=== PATIENT | female | born 1965 | race Caucasian/White ===

== ENCOUNTER 2017-05-19 21:35 | Emergency (ER) | payer BC ==
[~2017-05-19] VITALS: Ht 165.1 cm; Wt 93.0 kg
[2017-05-19 21:44] VITALS: BP 140/77; PULSE 81; RESP 20; TEMP 97.9; O2SAT 96
[2017-05-19] MEDS ORDERED: SODIUM CHLOR 0.9% 1000 ML INJ 1,000 ML IV ONE (22:17)
--- NOTE | 2017-05-19 22:25 | PD ---
HPI Chief Complaint: Syncope/Near-Syncope Time Seen by Provider: 22:17 Travel History International Travel<30 days: No Contact w/Intl Traveler<30days: No Traveled to known affect area: No History of Present Illness HPI 52-year-old female presents to the emergency department by EMS transport after a witnessed syncopal episode without seizure activity or injury. Patient denies any chronic medical concerns or conditions no surgeries and takes no medications on a regular basis. Patient is visiting from out of state. Patient states planning on returning back to [place] tomorrow. Prior history of near-syncope or syncope. Patient feels well at this time. Patient received 1 L of normal saline per EMS report prior to arrival to the emergency department. Upon fire rescue EMS arrival patient did have bradycardia and hypotension suspicious for a vasovagal event. No seizure activity was witnessed patient's GCS was normal at time of their arrival. Patient's glucose is normal. There was no trauma or injury or fall. PFSH Past Medical History Narrative Medical Negative past medical history no surgical history occasional alcohol use Medical History: Denies Significant Hx Diminished Hearing: No Immunizations Current: Yes Tetanus Vaccination: > 5 Years Influenza Vaccination: No ?: Unknown LMP: 05/05/17 : 3 Para: 3 Past Surgical History Tonsillectomy: Yes Social History Alcohol Use: Yes (OCCASIONAL) Tobacco Use: No Substance Use: No Allergies-Medications (Allergen,Severity, Reaction): Coded Allergies: No Known Allergies (Unverified , 05/19/17) Reported Meds & Prescriptions Reported Meds & Active Scripts Active No Active Prescriptions or Reported Medications Review of Systems Except as stated in HPI: all other systems reviewed are Neg Physical Exam Narrative GENERAL: Well-developed well-nourished female in no acute distress no respiratory distress; GCS 15 SKIN: Warm and dry. HEAD: Atraumatic. Normocephalic. EYES: Pupils equal and round. No scleral icterus. No injection or drainage. ENT: No nasal bleeding or discharge. Mucous membranes pink and moist. NECK: Trachea midline. No JVD. CARDIOVASCULAR: Regular rate and rhythm. RESPIRATORY: No accessory muscle use. Clear to auscultation. Breath sounds equal bilaterally. GASTROINTESTINAL: Abdomen soft, non-tender, nondistended. Hepatic and splenic margins not palpable. MUSCULOSKELETAL: Extremities without clubbing, cyanosis, or edema. No obvious deformities. NEUROLOGICAL: Awake and alert. No obvious cranial nerve deficits. Motor grossly within normal limits. Five out of 5 muscle strength in the arms and legs. No pronator drift. No limb ataxia. Sensory exam intact. DTRs 2+ and equal. Normal speech. PSYCHIATRIC: Appropriate mood and affect; insight and judgment normal. Data Data Last Documented VS Vital Signs Date Time Temp Pulse Resp B/P Pulse Ox O2 Delivery O2 Flow Rate FiO2 05/20/17 02:22 87 18 98 Room Air 05/20/17 02:22 127/74 05/20/17 02:22 98.1 Orders Electrocardiogram (05/19/17 22:17) Basic Metabolic Panel (Bmp) (05/19/17 22:17) Complete Blood Count With Diff (05/19/17 22:17) Magnesium (Mg) (05/19/17 22:17) Ckmb (Isoenzyme) Profile (05/19/17 22:17) Troponin I (05/19/17 22:17) Act Partial Throm Time (Ptt) (05/19/17 22:17) Prothrombin Time / Inr (Pt) (05/19/17 22:17) Urinalysis - C+S If Indicated (05/19/17 22:17) Chest, Single Ap (05/19/17 22:17) Ct Brain W/O Iv Contrast(Rout) (05/19/17 22:17) Ecg Monitoring (05/19/17 22:17) Iv Access Insert/Monitor (05/19/17 22:17) Oximetry (05/19/17 22:17) Sodium Chloride 0.9% Flush (Ns Flush) (05/19/17 22:30) Sodium Chlor 0.9% 1000 Ml Inj (Ns 1000 M (05/19/17 22:17) Orthostatic Vital Signs (05/19/17 22:17) Alcohol (Ethanol) (05/19/17 22:17) D-Dimer (05/19/17 22:17) Ct Pulmonary Angiogram (05/20/17 ) Iohexol 350 Inj (Omnipaque 350 Inj) (05/20/17 01:39) Labs Laboratory Tests Test 05/19/17 05/20/17 22:21 00:00 White Blood Count 10.2 TH/MM3 Red Blood Count 3.95 MIL/MM3 Hemoglobin 12.1 GM/DL Hematocrit 34.6 % Mean Corpuscular Volume 87.7 FL Mean Corpuscular Hemoglobin 30.7 PG Mean Corpuscular Hemoglobin 35.0 % Concent Red Cell Distribution Width 13.2 % Platelet Count 195 TH/MM3 Mean Platelet Volume 8.2 FL Neutrophils (%) (Auto) 70.7 % Lymphocytes (%) (Auto) 17.2 % Monocytes (%) (Auto) 10.1 % Eosinophils (%) (Auto) 1.6 % Basophils (%) (Auto) 0.4 % Neutrophils # (Auto) 7.2 TH/MM3 Lymphocytes # (Auto) 1.8 TH/MM3 Monocytes # (Auto) 1.0 TH/MM3 Eosinophils # (Auto) 0.2 TH/MM3 Basophils # (Auto) 0.0 TH/MM3 CBC Comment DIFF FINAL Differential Comment Prothrombin Time 10.5 SEC Prothromb Time International 1.0 RATIO Ratio Activated Partial 22.2 SEC Thromboplast Time D-Dimer Quantitative (PE/DVT) 0.54 MG/L FEU Sodium Level 138 MEQ/L Potassium Level 3.5 MEQ/L Chloride Level 107 MEQ/L Carbon Dioxide Level 22.8 MEQ/L Anion Gap 8 MEQ/L Blood Urea Nitrogen 17 MG/DL Creatinine 0.93 MG/DL Estimat Glomerular Filtration 64 ML/MIN Rate Random Glucose 89 MG/DL Calcium Level 8.1 MG/DL Magnesium Level 2.0 MG/DL Total Creatine Kinase 57 U/L Troponin I LESS THAN 0.02 NG/ML Ethyl Alcohol Level LESS THAN 3 MG/DL Urine Color YELLOW Urine Turbidity CLEAR Urine pH 5.5 Urine Specific Rhame 1.009 Urine Protein NEG mg/dL Urine Glucose (UA) NEG mg/dL Urine Ketones NEG mg/dL Urine Occult Blood NEG Urine Nitrite NEG Urine Bilirubin NEG Urine Urobilinogen LESS THAN 2.0 MG/DL Urine Leukocyte Esterase NEG Urine RBC LESS THAN 1 /hpf Urine WBC LESS THAN 1 /hpf Urine Mucus FEW /lpf Microscopic Urinalysis Comment CULT NOT INDICATED MDM Medical Decision Making Medical Screen Exam Complete: Yes Emergency Medical Condition: Yes Medical Record Reviewed: Yes Interpretation(s) EKG: Normal sinus rhythm rate 70 to elevation or injury pattern change noted Last Impressions CT Angiography 05/20/17 0000 Signed Impressions: Service Date/Time: Saturday, May 20, 2017 01:21 - CONCLUSION: Normal examination. Hugh Vazquez MD Head CT [id number]/19/[id number] Signed Impressions: Service Date/Time: Friday, May 19, 2017 22:23 - CONCLUSION: Normal examination for a patient of this age. Aren Cobb MD Chest X-Ray [id number]/19/[id number] Signed Impressions: Service Date/Time: Friday, May 19, 2017 22:34 - CONCLUSION: No acute disease. 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 Diagnosis Primary Impression: Syncope, vasovagal Additional Impression: Dehydration Referrals: Primary Care Physician call for appointment Additional Instructions: Increase fluid hydration Follow-up with your primary care provider Return to nearest emergency department for any concerns Take acetaminophen as needed for fever 100.4F or greater Scripts No Active Prescriptions or Reported Meds Disposition: DISCHARGE HOME Condition: Stable Melva Matson MD May 19, 2017 22:25
[2017-05-19] MEDS ORDERED: SODIUM CHLORIDE 0.9% FLUSH 10 ML FLUSH IVF PRN (22:30)
--- NOTE | 2017-05-19 22:36 | RADRPT ---
EXAM DATE/TIME: 05/19/2017 22:23 [facility] COMPARISON: No previous studies available for comparison. INDICATIONS : Syncope episode. RADIATION DOSE: 56.77 CTDIvol (mGy) MEDICAL HISTORY : None SURGICAL HISTORY : None. ENCOUNTER: Initial ACUITY: 1 day PAIN SCALE: 0/10 LOCATION: cranial TECHNIQUE: Multiple contiguous axial images were obtained of the head. Using automated exposure control and adj ustment of the mA and/or kV according to patient size, radiation dose was kept as low as reasonably a chievable to obtain optimal diagnostic quality images. DICOM format image data is available electro nically for review and comparison. FINDINGS: CEREBRUM: The ventricles are normal for age. No evidence of midline shift, mass lesion, hemorrhage or acute in farction. No extra-axial fluid collections are seen. POSTERIOR FOSSA: The cerebellum and brainstem are intact. The 4th ventricle is midline. The cerebellopontine angle i s unremarkable. EXTRACRANIAL: The visualized portion of the orbits is intact. SKULL: The calvaria is intact. No evidence of skull fracture. CONCLUSION: Normal examination for a patient of this age. Aren Cobb MD on May 19, 2017 at 22:33 Board Certified Radiologist. This report was verified electronically.
--- NOTE | 2017-05-19 22:47 | RADRPT ---
EXAM DATE/TIME: 05/19/2017 22:34 [facility] COMPARISON: No previous studies available for comparison. INDICATIONS : Syncopal episode. MEDICAL HISTORY : None. SURGICAL HISTORY : None. ENCOUNTER: Initial ACUITY: 1 day PAIN SCORE: 0/10 LOCATION: chest FINDINGS: A single view of the chest demonstrates the lungs to be symmetrically aerated without evidence of mas s, infiltrate or effusion. The cardiomediastinal contours are unremarkable. Osseous structures are intact. CONCLUSION: No acute disease. Aren Cobb MD on May 19, 2017 at 22:45 Board Certified Radiologist. This report was verified electronically.
[2017-05-19 22:51] LABS: AUTOMATED NEUTROPHIL # 7.2 TH/MM3 (1.8-7.7); BASOPHIL % 0.4 % (0.0-2.0); EOSINOPHIL # 0.2 TH/MM3 (0-0.4); EOSINOPHIL % 1.6 % (0.0-4.0); HEMATOCRIT 34.6 % (35.0-46.0); HEMO FLAGS DIFF FINAL; LYMPH % 17.2 % (9.0-44.0); LYMPHOCYTE # 1.8 TH/MM3 (1.0-4.8); MEAN CELL VOLUME 87.7 FL (80.0-100.0); MEAN CORPUSCULAR HEMOGLOBIN 30.7 PG (27.0-34.0); MONO % 10.1 % (0.0-8.0); NEUT % 70.7 % (16.0-70.0); PLATELET COUNT 195 TH/MM3 (150-450); RED BLOOD COUNT 3.95 MIL/MM3 (4.00-5.30); RED CELL DISTRIBUTION WIDTH 13.2 % (11.6-17.2); WHITE BLOOD COUNT 10.2 TH/MM3 (4.0-11.0)
[2017-05-19 23:04] LABS: APTT (PATIENT) 22.2 SEC (24.3-30.1); PROTHROMBIN TIME - PATIENT 10.5 SEC (9.8-11.6)
[2017-05-19 23:14] LABS: ANION GAP 8 MEQ/L (5-15); BICARBONATE 22.8 MEQ/L (21.0-32.0); BLOOD UREA NITROGEN 17 MG/DL (7-18); CHLORIDE 107 MEQ/L (98-107); GLOMERULAR FILTRATION RATE 64 ML/MIN (>89); POTASSIUM 3.5 MEQ/L (3.5-5.1); SODIUM (NA) 138 MEQ/L (136-145)
[2017-05-19 23:20] LABS: CREATINE KINASE 57 U/L (26-192)
[2017-05-20 00:35] LABS: BLOOD, URINE NEG (NEG); COMMENT (UR) CULT NOT INDICATED; CULTURE IF INDICATED CULT NOT INDICATED; GLUCOSE,URINE NEG (NEG); KETONE, URINE NEG (NEG); MUCUS URINE FEW /lpf (OCC); NITRITE,URINE NEG (NEG); PH, URINE 5.5 (5.0-8.5); URINE COLOR YELLOW (YELLW/STRAW)
[2017-05-20] MEDS ORDERED: IOHEXOL 350 MG/ML 10 ML VIAL (for RAD DIAG) IV ONE (01:39)
--- NOTE | 2017-05-20 01:47 | RADRPT ---
EXAM DATE/TIME: 05/20/2017 01:21 [facility] COMPARISON: No previous studies available for comparison. INDICATIONS : Syncopal episode. IV CONTRAST: 80 cc Omnipaque 350 (iohexol) IV RADIATION DOSE: 17.5 CTDIvol (mGy) MEDICAL HISTORY : None SURGICAL HISTORY : None. ENCOUNTER: Initial ACUITY: 1 day PAIN SCALE: 0/10 LOCATION: chest TECHNIQUE: Volumetric scanning of the chest was performed using a pulmonary embolism protocol MIP images were re constructed. Using automated exposure control and adjustment of the mA and/or kV according to patien t size, radiation dose was kept as low as reasonably achievable to obtain optimal diagnostic quality images. DICOM format image data is available electronically for review and comparison. Follow-up recommendations for incidentally detected pulmonary nodules are based at a minimum on nodul e size and patient risk factors according to Fleischner Society Guidelines. FINDINGS: PULMONARY ARTERIES: No filling defects are seen in the pulmonary arteries through the segmental level. LUNGS: There is no consolidation or pneumothorax . No concerning pulmonary nodule is visualized. PLEURAE: There is no pleural thickening or pleural effusion. MEDIASTINUM: There is good visualization of the great vessels of the middle mediastinum. No evidence of mediastin al or hilar adenopathy/mass. MUSCULOSKELETAL: Within normal limits for patient age. MISCELLANEOUS: The visualized upper abdominal organs demonstrate no acute abnormality. CONCLUSION: Normal examination. Hugh Vazquez MD on May 20, 2017 at 1:45 Board Certified Radiologist. This report was verified electronically.
[2017-05-20 02:22] VITALS: BP 127/74; PULSE 87; RESP 18; TEMP 98.1; O2SAT 100; O2SAT 99
--- NOTE | 2017-05-20 16:09 | EKG ---
Date Performed: 05/19/2017 Time Performed: 22:17:14 PTAGE: 52 years EKG: Sinus rhythm WITH SINUS ARRHYTHMIA NORMAL ECG NO PREVIOUS TRACING DOCTOR: Lakhwinder Mujica Interpretating Date/Time 05/20/2017 16:07:20
== END 2017-05-20 02:25 | disposition home or self-care (01) ==
LOC: NEPC 21:35
DX: R55 Syncope and collapse (principal); E86.0 Dehydration; I49.8 Other specified cardiac arrhythmias
CPT/HCPCS: 70450; 71010; 71275; 80048; 80307; 81001; 82550; 83735; 84484; 85025; 85379; 85610; 85730; 93005; 99285; J7030; Q9967